=== PATIENT | male | born 1980 | race Hispanic/Latino ===

== ENCOUNTER 2016-09-29 08:20 | Emergency (ER) | payer OTHER ==
[2016-09-29] MEDS ORDERED: Sodium Chloride 0.9% 1,000 ML ONE (08:38)
[2016-09-29 09:18] LABS: Acetaminophen Less than 3.0 mcg/mL (10.0-30.0); Anion Gap 17 mmol/L (10-20); BUN (Urea Nitrogen) 18 mg/dL (8.9-20.6); CK (CPK) 228 U/L (30-200); Calc. Creatinine Clearance 0 mL/min (70-130); Calcium 8.8 mg/dL (7.8-10.44); Carbon Dioxide 20 mmol/L (22-29); Chloride 110 mmol/L (98-107); Estimated GFR-MDRD 86; Salicylate Less than 5.0 mg/dL (15.0-30.0)
--- NOTE | 2016-09-29 10:30 | ERRECORD ---
[facility] EMERGENCY RECORD HPI GENERAL (08:40 JOHE) CHIEF COMPLAINT: Patient presents for evaluation of Patient smoked K2 in residential. HISTORIAN: History provided by patient, Additional history obtained from police, Per police and patient, patient smoked some K2 in residential around 0600 this morning. Patient denies other ingestions and drug use. No complaints, denies CP, SOB, palpitations, N&V, abd. pain, F&C and all other symptoms. Here for clearance to stay at jail. MECHANISM OF INJURY: Drug use associated with this incident. LOCATION: Symptoms are generalized. SEVERITY: Maximum severity of symptoms moderate, Currently symptoms are mild. TIME COURSE: Sudden onset of symptoms, 2, hours prior to arrival, Symptoms are improving, are constant. ASSOCIATED WITH: No associated symptoms, Denies any other complaints. EXACERBATED BY: Patient's condition exacerbated by nothing. RELIEVED BY: Nothing tried for relief. ROS (08:42 JOHE) CONSTITUTIONAL: Historian denies chills, denies fatigue, denies fever, denies lethargy, denies malaise. EYES: Historian denies eye pain, denies eye redness, denies eye discharge, denies vision changes. ENT: Historian denies otalgia, denies rhinorrhea, denies sore throat. CARDIOVASCULAR: Historian denies chest pain, denies diaphoresis, denies syncope, denies palpitations. RESPIRATORY: Historian denies cough, denies shortness of breath, denies wheezing. GI: Historian denies abdominal pain, denies diarrhea, denies nausea, denies vomiting. MUSCULOSKELETAL: Historian denies back pain, denies fall, denies myalgias, denies neck pain. SKIN: Historian denies rash, denies skin changes, denies skin lesions. NEUROLOGIC: Historian denies confusion, denies dizziness, denies focal weakness, denies gait changes, denies headache, denies lethargy, denies paralysis, denies paresthesias, denies seizures, denies sensory changes. PSYCHIATRIC: Historian denies alcohol abuse, denies depression, reports drug abuse, reports marijuana abuse, denies hallucinations, denies homicidal ideation, denies mood changes, denies suicidal ideation. NOTES: All systems reviewed, negative except as described above. PAST MEDICAL HISTORY (08:27 [facility]) &a-1R&a+25V*p+0X*[id number]*c202B*c15G*c2P*p-0X&a-25V&a+1R Name: Paul Fuller : 1980 M36 MedRec: [id number] AcctNum: [id number] Prepared: SunSep 29, 2016 10:34 by Interface Page 1 of 4 pMD [facility] EMERGENCY RECORD MEDICAL HISTORY: No past medical history, Notes: Pt is poor historian. MALE SURGICAL HISTORY: "ear surgery". PSYCHIATRIC HISTORY: No previous psychiatric history. SOCIAL HISTORY: Patient drinks socially, Patient currently uses drugs, Patient currently uses tobacco. KNOWN ALLERGIES None CURRENT MEDICATIONS (08:27 [facility]) None VITAL SIGNS VITAL SIGNS: BP: 106/67, Pulse: 112, Resp: 15, Pain: 0, O2 sat: 94 on Room Air, Time: 09/29/2016 08:22. (08:22 [facility]) BP: 104/63, Pulse: 100, Resp: 16, Pain: 0, O2 sat: 93 on Room Air, Time: 09/29/2016 08:54. (08:54 [facility]) Temp: 97.8 (Oral), Time: 09/29/2016 08:56. (08:56 [facility]) BP: 110/67, Pulse: 102, Resp: 16, Pain: 0, O2 sat: 94 on Room Air, Time: 09/29/2016 09:03. (09:03 [facility]) BP: 96/63, Pulse: 90, Resp: 17, Pain: 0, O2 sat: 94 on Room Air, Time: 09/29/2016 09:39. (09:39 [facility]) BP: 100/60, Pulse: 85, Resp: 17, Pain: 0, O2 sat: 96 on Room Air, Time: 09/29/2016 10:20. (10:20 [facility]) PHYSICAL EXAM (08:43 [facility]) CONSTITUTIONAL: Vital signs reviewed, Patient appears non toxic, Patient alert and oriented to person, place and time, Drowsy but arousable, oriented X 3, follows commands. HEAD: Head exam normal, Head exam included findings of head atraumatic, normocephalic. EYES: Eye exam included findings of eyelids normal to inspection, Pupils equally round and reactive to light, Extraocular muscles intact, Sclera normal, Eye exam included findings of anterior chamber clear, Mild bilateral conjunctival injection; pupils dilated but reactive bilaterally. ENT: Pharynx exam normal, not injected, no swelling, symmetrical, Uvula exam normal, midline, no edema, Tonsil exam normal, not enlarged, no exudates, Slightly dry oral mucosa. NECK: Neck exam normal, Neck exam included findings of normal range of motion, Trachea midline. RESPIRATORY CHEST: Respiratory and chest exam normal, Respiratory exam included findings of no respiratory distress, Breath sounds clear, No wheezing, No rales, No rhonchi, Breath sounds not absent, Breath sounds not diminished, CTAB. CARDIOVASCULAR: Cardiovascular exam included findings of, rate tachycardic, rhythm regular, Heart sounds normal, HR approx. 100 on my exam, RR, no R/M/G. No bruits, no edema. &a-1R&a+25V*p+0X*k1214Q*c202B*c15G*c2P*p-0X&a-25V&a+1R Name: Paul Fuller : 1980 M36 MedRec: [id number] AcctNum: [id number] Prepared: SunSep 29, 2016 10:34 by Interface Page 2 of 4 pMD [facility] EMERGENCY RECORD ABDOMEN MALE: Abdominal exam normal, Abdominal exam included findings of abdomen nontender, Bowel sounds normal, no distension, no mass, no pulsatile masses, no peritoneal signs, no rigidity, no guarding, no rebound, Soft, NT, ND, + BS. BACK: Back exam normal, Back exam included findings of normal inspection, range of motion normal. UPPER EXTREMITY: Upper extremity exam normal, Upper extremity exam included findings of inspection normal, Range of motion normal, Motor strength normal, Sensation intact, Radial pulse normal. LOWER EXTREMITY: Lower extremity exam normal, Lower extremity exam included findings of inspection normal, Range of motion normal, Motor strength normal, no edema, no calf tenderness. NEURO: Rainer coma scale, Eye opening: (3) To speech, Verbal: (5) - Oriented/conversive, Motor: (6) - Obeys commands/Spontaneous, GCS Total: 14, Neuro exam findings include patient oriented to person, place and time, Speech normal, Cranial nerves intact, no focal motor deficits, no focal sensory deficits, no cerebellar deficits, Babinski's negative, no nystagmus, no clonus, no asterixis. SKIN: Skin exam normal, Skin exam included findings of skin warm, dry, and normal in color, no rash. PSYCHIATRIC: Psychiatric exam included findings of patient oriented to person place and time, No suicidal ideations, No homicidal ideations. MEDICATION ADMINISTRATION SUMMARY Drug Name: Normal Saline, Dose Ordered: 1000 mL, Route: IV Fluid Infusion, Status: Given, Time: 08:53 09/29/2016, Detailed record available in Medication Service section. DOCTOR NOTES (10:22 ) RE-EVALUATION: The patient's condition has improved. TEXT: Patient now awake and alert, vitals improved (HR 85, BP 100/60, RR 17, O2 96% RA). Patient able to stand and ambulate well, tolerated PO in ED, remains without symptoms. Discussed results with patient, need to avoid drugs abuse in the future, outpatient f/u, and warning signs for when to return to ED. DATA REVIEWED: Lab data reviewed. PROBLEM LIST No recorded problems DIAGNOSIS (10:21 ) FINAL: PRIMARY: K2 intoxication. PRESCRIPTION No recorded prescriptions DISPOSITION &a-1R&a+25V*p+0X*[id number]*c202B*c15G*c2P*p-0X&a-25V&a+1R Name: Paul Fuller : 1980 MedRec: [id number] AcctNum: [id number] Prepared: SunSep 29, 2016 10:34 by Interface Page 3 of 4 pMD [facility] EMERGENCY RECORD PATIENT: Disposition Type: Discharge, Disposition: Discharge to Correction, Disposition Transport: Police, Condition: Improved. (10:21 ) Patient left the department. (10:30 [facility]) Garsia: MATEO=MD Rekha, Olu [facility]=SHANTELLE Carmona, Edelmira &a-1R&a+25V*p+0X*p3872G*c202B*c15G*c2P*p-0X&a-25V&a+1R Name: Paul Fuller : 1980 6 MedRec: [id number] AcctNum: [id number] Prepared: SunSep 29, 2016 10:34 by Interface Page 4 of 4 pMD [facility]
--- NOTE | 2016-09-29 10:36 | PICIS ---
[facility] EMERGENCY RECORD TRIAGE (SunSep 29, 2016 08:23 [facility]) TRIAGE NOTES: EMS reports pt has smoked K2 this AM around 0600 in [facility]. Pt has no complaints; originally BP was elevated, but pt's VSS now (106/67 at arrival). (SunSep 29, 2016 08:23 [facility]) PATIENT: NAME: Paul Fuller, AGE: 36, GENDER: male, : [facility] 1980, TIME OF GREET: SunSep 29, 2016 08:21, ECODE BILLING MAP: [facility], Zip Code: [address], PHONE: , , , PERSON ID: [id number]. (SunSep 29, 2016 08:23 [facility]) KG WEIGHT: 77.1 (est.). (08:24 [facility]) COMPLAINT: Medical clearance. (08:24 [facility]) ADMISSION: URGENCY: 4 Non Urgent, ADMISSION SOURCE: Prison/Intermediate, AMBULANCE: [facility], TRANSPORT: AMBULANCE - [facility], BED: ER -05. (SunSep 29, 2016 08:23 [facility]) IMMUNIZATIONS: Flu vaccine not up to date, Tetanus immunization up to date. (08:27 [facility]) SIRS SCORING: Heart Rate 110-139 (2), Temp range 96.8-101.1 (0), respiratory rate 12-24 (0), Mental Status altered: no (0). (08:27 [facility]) TRIAGE SCREENING: Patient denies suicidal ideation, Patient denies presence of domestic violence. (08:27 [facility]) PROVIDERS: TRIAGE NURSE: Edelmira Carmona RN. (SunSep 29, 2016 08:23 [facility]) VITAL SIGNS: BP 106/67, Pulse 112, Resp 15, Pain 0, O2 Sat 94, on Room Air, Time 09/29/2016 08:22. (08:22 [facility]) KNOWN ALLERGIES None CURRENT MEDICATIONS (08:27 [facility]) None VITAL SIGNS VITAL SIGNS: BP: 106/67, Pulse: 112, Resp: 15, Pain: 0, O2 sat: 94 on Room Air, Time: 09/29/2016 08:22. (08:22 [facility]) BP: 104/63, Pulse: 100, Resp: 16, Pain: 0, O2 sat: 93 on Room Air, Time: 09/29/2016 08:54. (08:54 [facility]) Temp: 97.8 (Oral), Time: 09/29/2016 08:56. (08:56 [facility]) BP: 110/67, Pulse: 102, Resp: 16, Pain: 0, O2 sat: 94 on Room Air, Time: 09/29/2016 09:03. (09:03 [facility]) BP: 96/63, Pulse: 90, Resp: 17, Pain: 0, O2 sat: 94 on Room Air, Time: 09/29/2016 09:39. (09:39 [facility]) BP: 100/60, Pulse: 85, Resp: 17, Pain: 0, O2 sat: 96 on Room Air, Time: 09/29/2016 10:20. (10:20 [facility]) NURSING ASSESSMENT: NEURO (08:27 [facility]) GCS: (6) Obeying command:, (5) Orientated:, (4) Spontaneous eye opening., Result: 15. CONSTITUTIONAL: Complex assessment performed, Patient arrives, via [facility], Gait steady, History obtained &a-1R&a+25V*p+0X*r2354S*c202B*c15G*c2P*p-0X&a-25V&a+1R Name: Paul Fuller : 1980 M36 MedRec: [id number] AcctNum: [id number] Prepared: SunSep 29, 2016 10:34 by Interface Page 1 of 8 pMD [facility] EMERGENCY RECORD from, Emergency Medical Services, Patient appears comfortable, Patient cooperative, Patient alert, Oriented to person, place and time, Skin warm, Skin dry, Skin normal in color, EMS reports pt smoked K@ in [facility] this AM at 0600. Originally reporting HTN, but pt's BP is stable @ 106/67 on scene and pt is quite lethargic. Obeys commands, and can answer questions. Reporting no pain, denying other symptoms. NEURO: Pupils equally round and reactive to light, Able to close eyes, Face symmetrical, Speech, slurred, slow, Hand grasps equal, Upper extremity strength strong, Lower extremity strength strong, Foot press equal. SAFETY: Side rails up, Cart/Stretcher in lowest position, Call light within reach, Hospital ID band on, Additional security personnel at bedside. NURSING PROCEDURE: OPERATING ROOM TECHNICIAN (08:25 [facility]) OPERATING ROOM TECHNICIAN: Patient placed on dock grader, Patient placed on non-invasive blood pressure monitor, Patient placed on continuous pulse oximetry. FOLLOW-UP: After procedure, alarms set and on, After procedure, patient tolerating monitoring. SAFETY: Side rails up, Cart/Stretcher in lowest position, Call light within reach, Hospital ID band on, Additional security personnel at bedside. NURSING PROCEDURE: DISCHARGE NOTE (10:26 [facility]) DISCHARGE: Patient discharged in police custody, ambulating with assistance, transported via state vehicle, accompanied by guard, Discharge instructions given to patient, Simple or moderate discharge teaching performed, by SHANTELLE Hickey, Patient treated and evaluated by physician. BELONGINGS: Belongings and valuables with patient upon arrival to the Emergency Department include:, Belongings and valuables with patient at time of discharge include:. SAFETY: Side rails up, Cart/Stretcher in lowest position, Call light within reach, Hospital ID band on, Additional security personnel at bedside. NURSING PROCEDURE: IV IV SITE 1: IV established, to the left hand, using a 22 gauge catheter, IV site prepped with chloraprep, Saline lock established, Flushed with normal saline (mls): 10, Labs drawn at time of placement, labeled in the presence of the patient and sent to lab, Notes: DALTON established by SHANTELLE Calero with use of IV catheter and start kit. SL established with no swelling, drainage, or redness. Secured with clear Tegaderm. (08:52 [facility]) FOLLOW-UP SITE 1: After procedure, no drainage at IV site, After procedure, no swelling at IV site, After procedure, no redness at IV site, IV discontinued, due to patient being discharged, catheter intact. (10:25 [facility]) &a-1R&a+25V*p+0X*[id number]*c202B*c15G*c2P*p-0X&a-25V&a+1R Name: Paul Fuller : 1980 M36 MedRec: [id number] AcctNum: [id number] Prepared: SunSep 29, 2016 10:34 by Interface Page 2 of 8 pMD [facility] EMERGENCY RECORD SAFETY: Side rails up, Cart/Stretcher in lowest position, Call light within reach, Hospital ID band on, Additional security personnel at bedside. (08:52 [facility]) NURSING PROCEDURE: LAB DRAW (08:52 [facility]) LAB DRAW: by venipuncture, from left hand, in two attempts, Lab specimens labeled in the presence of the patient and sent to lab. SAFETY: Side rails up, Cart/Stretcher in lowest position, Call light within reach, Hospital ID band on, Additional security personnel at bedside. ORDER DETAILS Order Name: Alcohol, Status: Active, Time: 08:39 09/29/2016, User: MATEO, - Ordered for: MD Da Silva John, - Entered by: MD Da Silva John - SunSep 29, 2016 08:39, - Quantity: 1, Order Name: Basic Metabolic Panel, Status: Active, Time: 08:39 09/29/2016, User: MATEO, - Ordered for: MD Da Silva John, - Entered by: MD Da Silva John - SunSep 29, 2016 08:39, - Quantity: 1, Order Name: OPERATING ROOM TECHNICIAN ED, Status: Done, Time: 08:41 09/29/2016, User: TRAVIS, - Ordered for: MD Da Silva John, - Entered by: MD Da Silva John - SunSep 29, 2016 08:40, - Quantity: 1, Order Name: CK (CPK), Status: Active, Time: 08:48 09/29/2016, User: MATEO, - Ordered for: MD Da Silva John, - Entered by: MD Da Silva John - SunSep 29, 2016 08:48, - Quantity: 1, Order Name: Drug Screen, Serum, Status: Active, Time: 08:39 09/29/2016, User: MATEO, - Ordered for: MD Da Silva John, - Entered by: MD Da Silva John - SunSep 29, 2016 08:39, - Quantity: 1, Order Name: ERRT Oxygen Usage ER, Status: Active, Time: 08:40 09/29/2016, User: MATEO, - Ordered for: MD Da Silva John, - Entered by: MD Da Silva John - SunSep 29, 2016 08:40, - Quantity: 1, Order Name: ERRT Pulse Oximeter ER, Status: Active, Time: 08:40 09/29/2016, User: MATEO, - Ordered for: MD Da Silva John, - Entered by: MD Da Silva John - SunSep 29, 2016 08:40, - Quantity: 1, Order Name: SALINE LOCK, Status: Done, Time: 08:52 09/29/2016, User: [facility], &a-1R&a+25V*p+0X*z0517U*c202B*c15G*c2P*p-0X&a-25V&a+1R Name: Paul Fuller : 1980 M36 MedRec: [id number] AcctNum: [id number] Prepared: SunSep 29, 2016 10:34 by Interface Page 3 of 8 pMD [facility] EMERGENCY RECORD - Ordered for: MD Da Silva John, - Entered by: MD Da Silva John - SunSep 29, 2016 08:40, - Quantity: 1. MEDICATION ADMINISTRATION SUMMARY Drug Name: Normal Saline, Dose Ordered: 1000 mL, Route: IV Fluid Infusion, Status: Given, Time: 08:53 09/29/2016, Detailed record available in Medication Service section. MEDICATION SERVICE Normal Saline: Order: Normal Saline (0.9 % sodium chloride) - Dose: 1000 mL : IV Fluid Infusion Schedule: Now Ordered by: Olu Da Silva MD Entered by: Olu Da Silva MD SunSep 29, 2016 08:39 , Acknowledged by: Edelmira Carmona RN SunSep 29, 2016 08:41 Documented as given by: Edelmira Carmona RN SunSep 29, 2016 08:53 Patient, Medication, Dose, Route and Time verified prior to administration. Amount given: 1L, IV SITE #1 IV fluids established for hydration, IV SITE #1 into left hand, IV SITE #1 1st bag hung, amount 1 Liter hung, via primary tubing, Administered by SHANTELLE Calero, Patient in position of comfort, Side rails up, Cart in lowest position, Call light in reach. : Follow Up : Response assessment performed, No signs or symptoms of allergic reaction noted, Site inspection shows, No swelling at administration site, No drainage at administration site, No bleeding at site, No bruising noted at site, _IV SITE #1:_, IV fluid infusion discontinued, on SunSep 29, 2016 10:20, Total fluid hydration time IV site 1 1 hour, 30 minutes, ., Total amount infused: 1L. (10:19 [facility]) HPI GENERAL (08:40 [facility]) CHIEF COMPLAINT: Patient presents for evaluation of Patient smoked K2 in [facility]. HISTORIAN: History provided by patient, Additional history obtained from police, Per police and patient, patient smoked some K2 in [facility] around 0600 this morning. Patient denies other ingestions and drug use. No complaints, denies CP, SOB, palpitations, N&V, abd. pain, F&C and all other symptoms. Here for clearance to stay at long term. MECHANISM OF INJURY: Drug use associated with this incident. LOCATION: Symptoms are generalized. SEVERITY: Maximum severity of symptoms moderate, Currently symptoms are mild. TIME COURSE: Sudden onset of symptoms, 2, hours prior to arrival, Symptoms are improving, are constant. &a-1R&a+25V*p+0X*d5120W*c202B*c15G*c2P*p-0X&a-25V&a+1R Name: Paul Fuller : 1980 M36 MedRec: [id number] AcctNum: [id number] Prepared: SunSep 29, 2016 10:34 by Interface Page 4 of 8 pMD [facility] EMERGENCY RECORD ASSOCIATED WITH: No associated symptoms, Denies any other complaints. EXACERBATED BY: Patient's condition exacerbated by nothing. RELIEVED BY: Nothing tried for relief. ROS (08:42 [facility]) CONSTITUTIONAL: Historian denies chills, denies fatigue, denies fever, denies lethargy, denies malaise. EYES: Historian denies eye pain, denies eye redness, denies eye discharge, denies vision changes. ENT: Historian denies otalgia, denies rhinorrhea, denies sore throat. CARDIOVASCULAR: Historian denies chest pain, denies diaphoresis, denies syncope, denies palpitations. RESPIRATORY: Historian denies cough, denies shortness of breath, denies wheezing. GI: Historian denies abdominal pain, denies diarrhea, denies nausea, denies vomiting. MUSCULOSKELETAL: Historian denies back pain, denies fall, denies myalgias, denies neck pain. SKIN: Historian denies rash, denies skin changes, denies skin lesions. NEUROLOGIC: Historian denies confusion, denies dizziness, denies focal weakness, denies gait changes, denies headache, denies lethargy, denies paralysis, denies paresthesias, denies seizures, denies sensory changes. PSYCHIATRIC: Historian denies alcohol abuse, denies depression, reports drug abuse, reports marijuana abuse, denies hallucinations, denies homicidal ideation, denies mood changes, denies suicidal ideation. NOTES: All systems reviewed, negative except as described above. PAST MEDICAL HISTORY (08:27 [facility]) MEDICAL HISTORY: No past medical history, Notes: Pt is poor historian. MALE SURGICAL HISTORY: "ear surgery". PSYCHIATRIC HISTORY: No previous psychiatric history. SOCIAL HISTORY: Patient drinks socially, Patient currently uses drugs, Patient currently uses tobacco. PHYSICAL EXAM (08:43 [facility]) CONSTITUTIONAL: Vital signs reviewed, Patient appears non toxic, Patient alert and oriented to person, place and time, Drowsy but arousable, oriented X 3, follows commands. HEAD: Head exam normal, Head exam included findings of head atraumatic, normocephalic. EYES: Eye exam included findings of eyelids normal to inspection, Pupils equally round and reactive to light, Extraocular muscles intact, Sclera normal, Eye exam included findings of anterior chamber clear, Mild bilateral conjunctival injection; pupils dilated but &a-1R&a+25V*p+0X*p6987O*c202B*c15G*c2P*p-0X&a-25V&a+1R Name: Paul Fuller : 1980 M36 MedRec: [id number] AcctNum: [id number] Prepared: SunSep 29, 2016 10:34 by Interface Page 5 of 8 pMD [facility] EMERGENCY RECORD reactive bilaterally. ENT: Pharynx exam normal, not injected, no swelling, symmetrical, Uvula exam normal, midline, no edema, Tonsil exam normal, not enlarged, no exudates, Slightly dry oral mucosa. NECK: Neck exam normal, Neck exam included findings of normal range of motion, Trachea midline. RESPIRATORY CHEST: Respiratory and chest exam normal, Respiratory exam included findings of no respiratory distress, Breath sounds clear, No wheezing, No rales, No rhonchi, Breath sounds not absent, Breath sounds not diminished, CTAB. CARDIOVASCULAR: Cardiovascular exam included findings of, rate tachycardic, rhythm regular, Heart sounds normal, HR approx. 100 on my exam, RR, no R/M/G. No bruits, no edema. ABDOMEN MALE: Abdominal exam normal, Abdominal exam included findings of abdomen nontender, Bowel sounds normal, no distension, no mass, no pulsatile masses, no peritoneal signs, no rigidity, no guarding, no rebound, Soft, NT, ND, + BS. BACK: Back exam normal, Back exam included findings of normal inspection, range of motion normal. UPPER EXTREMITY: Upper extremity exam normal, Upper extremity exam included findings of inspection normal, Range of motion normal, Motor strength normal, Sensation intact, Radial pulse normal. LOWER EXTREMITY: Lower extremity exam normal, Lower extremity exam included findings of inspection normal, Range of motion normal, Motor strength normal, no edema, no calf tenderness. NEURO: Everett coma scale, Eye opening: (3) To speech, Verbal: (5) - Oriented/conversive, Motor: (6) - Obeys commands/Spontaneous, GCS Total: 14, Neuro exam findings include patient oriented to person, place and time, Speech normal, Cranial nerves intact, no focal motor deficits, no focal sensory deficits, no cerebellar deficits, Babinski's negative, no nystagmus, no clonus, no asterixis. SKIN: Skin exam normal, Skin exam included findings of skin warm, dry, and normal in color, no rash. PSYCHIATRIC: Psychiatric exam included findings of patient oriented to person place and time, No suicidal ideations, No homicidal ideations. LAB INTERPRETATION (09:27 [facility]) INTERPRETATION: I reviewed the lab results, No clinically significant lab abnormalities. EVENTS TRANSFER: Triage to Emergency Emergency Room -05. (SunSep 29, 2016 08:23 [facility]) Removed from Emergency Emergency Room -05. (10:30 [facility]) DOCTOR NOTES (10:22 [facility]) RE-EVALUATION: The patient's condition has improved. &a-1R&a+25V*p+0X*m8540L*c202B*c15G*c2P*p-0X&a-25V&a+1R Name: Paul Fuller : 1980 M36 MedRec: [id number] AcctNum: [id number] Prepared: SunSep 29, 2016 10:34 by Interface Page 6 of 8 pMD [facility] EMERGENCY RECORD TEXT: Patient now awake and alert, vitals improved (HR 85, BP 100/60, RR 17, O2 96% RA). Patient able to stand and ambulate well, tolerated PO in ED, remains without symptoms. Discussed results with patient, need to avoid drugs abuse in the future, outpatient f/u, and warning signs for when to return to ED. DATA REVIEWED: Lab data reviewed. PROBLEM LIST No recorded problems DIAGNOSIS (10:21 [facility]) FINAL: PRIMARY: K2 intoxication. DISPOSITION PATIENT: Disposition Type: Discharge, Disposition: Discharge to Prison, Disposition Transport: Police, Condition: Improved. (10:21 [facility]) Patient left the department. (10:30 [facility]) INSTRUCTION (10:22 [facility]) DISCHARGE: MARIJUANA ABUSE, ABUSE DRUG GENERAL. FOLLOWUP: Follow up with Primary Care Physician in 2-3 days. SPECIAL: Follow-up with your PCP; Return to ED for chest pain, trouble breathing, lightheadedness, muscle aches, fever, inability to tolerate liquids or any other new/worsening symptoms. PRESCRIPTION No recorded prescriptions IMAGING *DISCHARGE INSTRUCTIONS RECEIPT: Image captured from scanner. (10:29 [facility]) *SUPPLY CHARGE SHEET: Image captured from scanner. (10:30 [facility]) ADMIN (10:24 [facility]) DIGITAL SIGNATURE: MD Da Silva John. RESULTS LABORATORY: Drug Screen, Blood Collection DT: SunSep 29, 2016 08:53, *Acetaminophen Less than 3.0 - L mcg/mL, Range (10.0-30.0), Therapeutic Range: 10.0 - 30.0 ug/mL Toxic Range: Possible, toxicity: 150 - 200 ug/mL Probable toxicity: Greater than 200, ug/mL *IMPORTANT TESTING INFORMATION* The half-life of NAC is 2, hours. The total NAC clearance is 5.6 hours for adults and 11 hours for, Newborns. Testing acetaminophen levels prior to a reasonable time &a-1R&a+25V*p+0X*d3476A*c202B*c15G*c2P*p-0X&a-25V&a+1R Name: Paul Fuller : 1980 M36 MedRec: [id number] AcctNum: [id number] Prepared: SunSep 29, 2016 10:34 by Interface Page 7 of 8 pMD [facility] EMERGENCY RECORD frame, for clearance can cause falsely decreased acetaminophen levels. , Alcohol Less than 10 mg/dL, Range (Less than 10), The pharmacological response to blood alcohol levels may vary from, individual to individual. Negative: Less than 10, mg/dL Toxic: 50 - 100 mg/dL , Depression of HOME ENERGY INSPECTOR: Greater than 100 mg/dL , Fatalities reported: Greater than 400 mg/dL , *Salicylate Less than 5.0 - L mg/dL, Range (15.0-30.0). (09:20 ) CK (CPK) Collection DT: SunSep 29, 2016 08:53, *CK (CPK) 228 - H U/L, Range (30-200). (09:20 ) Basic Metabolic Panel Collection DT: SunSep 29, 2016 08:53, Sodium 141 mmol/L, Range (136-145), *Chloride 110 - H mmol/L, Range (98-107), *Carbon Dioxide 20 - L mmol/L, Range (22-29), Anion Gap 17 mmol/L, Range (10-20), BUN (Urea Nitrogen) 18 mg/dL, Range (8.9-20.6), Creatinine 0.99 mg/dL, Range (0.7-1.3), Estimated GFR-MDRD 86 , Reference Range for Estimated GFR: Greater than 90, mL/min/1.73 m2 NOTE: The MDRD equation has not been validated for use, with the elderly (over 70 years of age), women, patients with, serious comorbid condition or persons with extremes of body size, muscle, mass, or nutritional status. , *Glucose 118 - H mg/dL, Range (70-105), Calcium 8.8 mg/dL, Range (7.8-10.44). (09:23 [facility]) Garsia: LEYLA=SHANTELLE Doshi, [place] GALINDO=MD Rekha, Olu SWETHA=SHANTELLE Carmona, [place] &a-1R&a+25V*p+0X*m3840I*c202B*c15G*c2P*p-0X&a-25V&a+1R Name: Paul Fuller : 1980 M36 MedRec: [id number] AcctNum: [id number] Prepared: SunSep 29, 2016 10:34 by Interface Page 8 of 8 pMD [facility]TDD
== END 2016-09-29 10:30 | disposition home or self-care (01) ==
LOC: NAV ERS 08:20
DX: F12.929 Cannabis use, unspecified with intoxication, unspecified (principal)
CPT/HCPCS: 36415; 80048; 80307; 82550; 94760; 96360; J7050